=== PATIENT | female | born 1975 | race Caucasian/White ===

== ENCOUNTER 2024-05-19 22:18 | Emergency (ER) | payer OTHER ==
[~2024-05-19] VITALS: Ht 180.3 cm; Wt 90.0 kg
[~2024-05-19 22:18] MED LIST: IBUPROFEN800 MG PO; NORCO 5-325 TA1 EACH PO; PENICILLIN V P500 MG PO; PRENATAL-FOLIC1 EACH PO
[2024-05-19] MEDS ORDERED: MORPHINE SULFATE 4 MG/ML VIAL IV ONE (22:30)
[2024-05-19 22:36] LABS: HEMATOCRIT 26.2 % (35.0-50.0); HEMOGLOBIN 7.8 g/dL (12.0-18.0); MCH 17.9 (27-36); MCHC 29.7 g/dl (30-36); MCV 60.4 fl (81-99); PLATELET COUNT 302 K/uL (140-440); RBC 4.34 M/ul (4.3-5.7); RDW 22.3 (10.5-15.0)
[2024-05-19 22:50] LABS: ALBUMIN 3.7 g/dL (3.4-5.0); ANION GAP 11.8 (7-21); BILIRUBIN, TOTAL 0.2 mg/dL (0.2-1.0); BUN/CREATININE RATIO 13.95 (6.0-28.6); CALCIUM 8.8 mg/dL (8.5-10.1); CREATININE, SERUM 0.86 mg/dL (0.55-1.02); POTASSIUM 3.8 mmol/L (3.5-5.1); PROTEIN, TOTAL 7.4 g/dL (6.4-8.2)
[2024-05-19 23:38] LABS: LYMPHOCYTES, MANUAL DIFF 44; NEUTROPHILS, MANUAL DIFF 56
[2024-05-20 00:21] LABS: ABO A; ANTIBODY SCREEN NEGATIVE; RH POSITIVE
[2024-05-20 00:42] LABS: INFLUENZA B NAA NEGATIVE (NEGATIVE); RESPIRATORY SYNCYTIAL VIR NAA NEGATIVE (NEGATIVE)
[2024-05-20 01:19] LABS: IS CROSSMATCH COMPATIBLE
[2024-05-20 01:31] LABS: ABO A; RH POSITIVE
[2024-05-20] MEDS ORDERED: VITAMIN C500 M1 PO (01:31)
[2024-05-20] MEDS ORDERED: FERROUS SULFAT325 M2 PO (01:31)
[2024-05-20 04:35] VITALS: BP 133/76
--- NOTE | 2024-05-20 22:45 | EKG ---
[facility] [address] [place] [address] Signed Normal sinus rhythm Normal ECG No previous ECGs available Confirmed by Renetta Ordoñez MD () on 05/20/2024 10:45:37 PM Electronically Signed By: RENETTA ORDOÑEZ MD 05/20/24 2245 PATIENT NAME: LUDMILA LOVE Jeevan Electrocardiogram DATE OF : 77 PHYSICIAN: RENETTA ORDOÑEZ MD REPORT #: [id number] REPORT IS CONFIDENTIAL AND NOT TO BE RELEASED WITHOUT AUTHORIZATION
== END 2024-05-20 04:35 | disposition home or self-care (01) ==
LOC: ED 22:18
PROVIDERS: Family Medicine
DX: D50.9 Iron deficiency anemia, unspecified (principal); R07.89 Other chest pain; F17.200 Nicotine dependence, unspecified, uncomplicated; Z88.5 Allergy status to narcotic agent
CPT/HCPCS: 36415; 36430; 71045; 80053; 83735; 84484; 85025; 86850; 86900; 86901; 86922; 87502; 93005; 93010; 96374; 99285-25; J2270; P9016; U0002

== ENCOUNTER 2025-01-24 16:33 | Inpatient (IN) | payer OTHER ==
[~2025-01-24] VITALS: Ht 180.3 cm; Wt 95.0 kg
[2025-01-24] VITALS (9 sets, daily range): BP systolic 96–115; BP diastolic 57–61
--- OUTSIDE RECORDS SUMMARY | ~2025-01-24 | XMS | Continuity of Care Document ---
Demographics + + + | Address | [address] | | | [place] [address] | + + + | Preferred Language | Unknown | + + + | Marital Status | Unknown | + + + | Amish Affiliation | Unknown | + + + | Race | White | + + + | Ethnic Group | Not or | + + + Author + + + | Author | [facility] | + + + | Organization | [facility] | + + + | Address | [address] | | | [place] [address] | + + + | Phone | | + + + Care Team Providers + + + + | Care Training Generalist Name | Role | Phone | + + + + Unavailable | Unavailable | + + + + Allergies No information. Encounters No information. Functional Status No information. Immunizations No information. Medications No information. Problems + + + + | date | description | facility | + + + + | 2024-12-31 12:06:48 | Alcohol use, unspecified | [facility] | | | with withdrawal, | | | | uncomplicated (CMS/HCC V24, | | | | CMS/HCC V28) | | + + + + | 2024-12-31 12:06:48 | Acute frontal sinusitis, | [facility] | | | unspecified | | + + + + Procedures No information. Results/Labs No information. Social History +--------+ + + | date | description | facility | +--------+ + + Vital Signs No information."
--- OUTSIDE RECORDS SUMMARY | ~2025-01-24 | XMS | Continuity of Care Document ---
Demographics + + + | Address | [address] | | | [place] [address] | + + + | Preferred Language | Unknown | + + + | Marital Status | Unknown | + + + | Worship Affiliation | Unknown | + + + | Race | White | + + + | Ethnic Group | Not or | + + + Author + + + | Author | [facility] | + + + | Organization | [facility] | + + + | Address | [address] | | | [place] [address] | + + + | Phone | | + + + Care Team Providers + + + + | Care Clerical Car Checker Name | Role | Phone | + [...]
[~2025-01-24 16:33] MED LIST changes: +FERROUS SULFAT325 M2 PO; +VITAMIN C500 M1 PO
--- OUTSIDE RECORDS SUMMARY | 2025-01-24 16:34 | XMS ---
PreManage Notification: [facility] LOVE Security Stitcher Hand Events No recent Security Events currently on file CRITERIA MET - [facility] - 2 Visits in 30 Days CARE PROVIDERS -, [facility] Dentist: Circus Supervisor Current [place] PHONE: [phone] -[place]- Dentist: Circus Supervisor Current [facility] PHONE: [phone] [facility]: [facility] FAMILY PHONE: [phone] ADÁN MACK Physician Networking Administrator Current PHONE: [phone] Georgie has no Care Guidelines for this patient. Melonie VISIT COUNT (12 MO.) 2 [facility] [address] [facility] TOTAL 5 NOTE: Visits indicate total known visits. ED/UCC VISIT TRACKING (12 MO.) 01/24/2025 16:33 [facility] [place] TYPE: Emergency COMPLAINT: - BODY ACHES [facility]24 11[facility]: Emergency COMPLAINT: - Left shoulder pain (past 3 months) DIAGNOSES: - Acute frontal sinusitis, unspecified - Alcohol use, unspecified with withdrawal, uncomplicated - Left shoulder pain (past 3 months) - pain all over body 07/02/2024 10:09 [facility] ([facility]) TYPE: Emergency DIAGNOSES: - Chest pain, unspecified - Chest Pain - CP 06/26/2024 13:09 [facility] (Lynette Ojeda) TYPE: Emergency DIAGNOSES: - Chest pain, unspecified - Iron deficiency anemia, unspecified - Chest Pain - CP 05/19/2024 22:[address] [facility] [place] TYPE: Emergency COMPLAINT: - CHEST PAIN DIAGNOSES: - Allergy status to narcotic agent - Chest pain, unspecified - Iron deficiency anemia, unspecified - Nicotine dependence, unspecified, uncomplicated - Other chest pain INPATIENT VISIT TRACKING (12 MO.) No inpatient visits to display in this time frame [email or web address]
[2025-01-24 17:02] LABS: CORONAVIRUS COVID-19 AG NEGATIVE (NEGATIVE)
[2025-01-24] MEDS ORDERED: KETOROLAC TROMETHAMINE 15 MG/ML VIAL IV ONE (18:30)
[2025-01-24] MEDS ORDERED: ACETAMINOPHEN 500 MG TAB PO ONE (18:30)
[2025-01-24] MEDS ORDERED: SODIUM CHLORIDE 0.9% 1,000 ML IV ONE (18:30)
[2025-01-24 18:50] LABS: BASOPHILS 0.2 % (0.1-1.2); EOSINOPHILS 0 % (0.7-5.8); LYMPHOCYTES 10.1 % (19.3-51.7); MCH 17.8 PG (25.6-32.2); MCHC 28.0 g/dL (32.2-35.5); MCV 63.7 fL (79.4-94.8); MONOCYTES 6.1 % (4.7-12.5); NEUTROPHILS 82.6 % (34.0-71.1); RBC 4.43 M/uL (3.93-5.22)
[2025-01-24 19:18] LABS: ALT (SGPT) 12.0 U/L (14-59); AST (SGOT) 16.0 U/L (15-37); GLOMERULAR FILTRATION RATE,EST 52.0 mL/min (>60); PROTEIN, TOTAL 6.8 g/dL (6.4-8.2); UREA NITROGEN 12.0 mg/dL (7-18)
[2025-01-24] MEDS ORDERED: SODIUM CHLORIDE 0.9% 1,000 ML IV PRN (19:45)
[2025-01-24] MEDS ORDERED: NALOXONE HCL 0.4 MG SYR IV ONE (19:45)
[2025-01-24] MEDS ORDERED: AZITHROMYCIN 500 MG in DEXTROSE 5% 250 ML IV ONE (19:45)
[2025-01-24 20:03] LABS: LACTIC ACID, BLOOD 1.9 mmol/L (0.4-2.0)
[2025-01-24 20:04] LABS: BLOOD/HGB, URINE NEGATIVE (Negative); KETONE, URINE TRACE (Negative); LEUK ESTERASE, URINE NEGATIVE (negative); NITRITE, URINE NEGATIVE (negative)
[2025-01-24 20:13] LABS: EPITHELIAL CELLS, URINE SQUAMOUS 1+ /lpf (0-1+)
[2025-01-24 20:14] LABS: BACTERIA, URINE 1+ /hpf (negative); CASTS, URINE NONE SEEN \\lpf; CRYSTALS, URINE NONE SEEN (0-1+); REFLEX CULTURE, URINE No (No)
[2025-01-24 20:24] LABS: AMPHETAMINES, URINE POSITIVE (NEGATIVE); BARBITURATES, URINE NEGATIVE (NEGATIVE); BENZODIAZEPINE, URINE NEGATIVE (NEGATIVE); CANNABINOID, URINE POSITIVE (NEGATIVE); COCAINE, URINE NEGATIVE (NEGATIVE); ECSTASY, URINE POSITIVE (NEGATIVE); FENTANYL, URINE NEGATIVE (NEGATIVE); METHADONE, URINE NEGATIVE (NEGATIVE); OPIATES, URINE NEGATIVE (NEGATIVE); OXYCODONE, URINE NEGATIVE (NEGATIVE); PHENCYCLIDINE, URINE NEGATIVE (NEGATIVE)
[2025-01-24] MEDS ORDERED: NOREPINEPHRINE BITARTRATE 250 ML IV SCH (21:15)
[2025-01-24] MEDS ORDERED: PIPERACILLIN/TAZOBACTAM 4.5 GM in SODIUM CHLORIDE 0.9% 100 ML IV ONE (22:00)
[2025-01-24] MEDS ORDERED: LACTATED RINGER'S 1,000 ML IV SCH (22:00)
[2025-01-24] MEDS ORDERED: LIDOCAINE 2% VISCOUS 6 ML SYR TOP ONE (22:00)
--- NOTE | 2025-01-24 22:26 | NUR ---
RECEIVED REPORT FROM ASH ROSAS RN. ON PHONE AND ER NURSE GAVE UPDATE AND RECEIVED VERBAL ORDERS. ORDERS VERIFIED USING REPEATBACK METHOD. THIS RN PLACE DIAMOND TEMP PER ORDER. INTRA ABD PRESSURE COMPLETED AND NOTED TO BE 13. IV ABX INFUSING PER ORDER. IV FLUIDS INFUSING PER ORDER. PATIENT AWAKENS TO PAINFUL STIMULI. PATIENT IS ON 3L VIA OXYMASK. PATIENT TITRATED TO 2L VIA NC. PATIENTS ADMISSION COMPLETED. ASSESMENT COMPLETED.
--- NOTE | 2025-01-24 22:54 | NUR ---
PATIENTS AT BEDSIDE AND UPDATED AND PLAN OF CARE FOR PATIENT AND ALL QUESTIONS ANSWERED. PATIENTS DIAMOND EMPTIED AND RECORDED. PATIENT CONTINUES TO BE DROWSY BUT AROUSBALE. NO NEEDS NOTED. CALL LIGHT IN REACH.
[2025-01-25] VITALS (35 sets, daily range): BP systolic 98–132; BP diastolic 44–73
--- NOTE | 2025-01-25 00:04 | NUR ---
PATIENTS NOREPI TITRATED PER PROTOCOL-SEE FLOWSHEET. PATEINT TITRATED TO 3L NC. PATIENT AWAKENS BRIEFLY AND TALKS ON PHONE. PATIENT IS [id number]. PATIENT DENIES ANY PAIN OR SOB. PATIENT DENIES ANY NEEDS. CALL LIGHT IN REACH. IV INFUSING PER ORDER.
--- NOTE | 2025-01-25 00:23 | NUR ---
PATIENTS NOREPI TITRATED PER PROTOCOL-SEE FLOWSHEET. FOLET EMPTIED AND RECORDED. PATIENT IS RESTING IN BED WITH EYES CLOSED RR 24, NAD NOTED. CALL LIGHT IN REACH. IV INFUSING PER ORDER.
--- NOTE | 2025-01-25 01:12 | NUR ---
PATIENTS DIAMOND EMPTIED AND RECORDED. PATIENTS NOREPI DRIP-TITRATED PER PROTOCOL SEE FLOWSHEET. PATIENT IS RESTING IN BED WITH EYES CLOSED, RR 17. NAD NOTED. CALL LIGHT IN REACH.
--- NOTE | 2025-01-25 02:30 | NUR ---
PATIENT LEVOPHED GTT TURNED OFF PER MEDICATION FLOWSHEET. PATIENT RESTING IN BED WITH EYES CLOSED, RR 19. IVF INFUSING PER EMAR, SITE WNL. PATIENT DIAMOND CATHETER INTACT AND DRAINING YELLOW COLORED URINE. PATIENT HAS NO NEEDS AT THIS TIME. CALL LIGHT IN REACH.
[2025-01-25] MEDS ORDERED: ALBUTEROL SULFATE 0.083% 3 ML VIAL INH PRN (02:45)
[2025-01-25] MEDS ORDERED: ACETAMINOPHEN 500 MG TAB PO PRN ×2 (02:45→07:15)
--- NOTE | 2025-01-25 04:39 | NUR ---
PATIENT RESTING IN BED WITH EYES CLOSED. PATIENT BOYFRIEND AT BEDSIDE. PATIENT LUNG SOUNDS COARSE THROUGHOUT, CONTINUES TO HAVE OCCASIONAL COUGH. DIAMOND CATHETER EMPTIED AND DOCUMENTED. PATIENT IVF INFUSING PER EMAR, SITE WNL. PATIENT BLOOD PRESSURE REMAINS STABLE. PATIENT HAS CALL LIGHT IN REACH.
[2025-01-25] MEDS ORDERED: PIPERACILLIN/TAZOBACTAM 4.5 GM in DEXTROSE 5% 100 ML IV SCH (06:00)
[2025-01-25 06:03] LABS: BASOPHILS 0.2 % (0.1-1.2); EOSINOPHILS 0.1 % (0.7-5.8); LYMPHOCYTES 10.1 % (19.3-51.7); MCH 18.1 PG (25.6-32.2); MCHC 28.2 g/dL (32.2-35.5); MCV 64.3 fL (79.4-94.8); MONOCYTES 4.5 % (4.7-12.5); NEUTROPHILS 82.9 % (34.0-71.1); RBC 4.03 M/uL (3.93-5.22)
[2025-01-25 06:19] LABS: RETIC, PERCENT 1.06 % (0.5-1.7)
[2025-01-25 06:24] LABS: SMEAR REVIEW BLOOD SEE COMMENTS
[2025-01-25 06:27] LABS: ALT (SGPT) 13.0 U/L (14-59); AST (SGOT) 16.0 U/L (15-37); GLOMERULAR FILTRATION RATE,EST 56.0 mL/min (>60); PROTEIN, TOTAL 6.0 g/dL (6.4-8.2); UREA NITROGEN 11.0 mg/dL (7-18)
--- NOTE | 2025-01-25 07:05 | NUR ---
PLACED CALL TO MD TO UPDATE ON LABS AND REQUEST PAIN MEDICATION. RECEIVED NEW VERBAL ORDERS AND VERIFIED ORDERS USING REPEAT BACK METHOD.
[2025-01-25] MEDS ORDERED: NICOTINE POLACRILEX 4 MG LOZENGE BUCCAL PRN (07:15)
[2025-01-25] MEDS ORDERED: PROCHLORPERAZINE EDISYLATE 10 MG/2 ML VIAL IV PRN (07:15)
[2025-01-25] MEDS ORDERED: NICOTINE POLACRILEX 2 MG GUM MM PRN (07:15)
[2025-01-25] MEDS ORDERED: POTASSIUM CHLORIDE 10 MEQ TABCR PO ONE (07:15)
[2025-01-25] MEDS ORDERED: KETOROLAC TROMETHAMINE 30 MG/ML VIAL IV PRN (07:15)
[2025-01-25] MEDS ORDERED: BENZONATATE 100 MG CAP PO PRN (07:15)
[2025-01-25] MEDS ORDERED: MAGNESIUM HYDROXIDE/AL HYDROX 30 ML CUP PO PRN (07:15)
--- NOTE | 2025-01-25 07:30 | NUR ---
HANDOFF REPORT RECEIVED FROM SPECIAL AGENT [employer] RN. ALL QUESTIONS ANSWERED. NO EVIDENCE OF ACUTE DISTRESS NOTED. PATIENT RESTING IN BED. CALL LIGHT IN REACH
--- NOTE | 2025-01-25 08:39 | NUR ---
PATIENT ASSESSMENT COMPLETE. PATIENT ALERT AND ORIENTED. RR 22. SPO2 96% ON RA. ORAL TEMP 99.2. PATIENT STATES PAIN IS "BETTER" SINCE TORADOL ADMINISTRATION. PATIENT RATES PAIN 8/10 ON THE R. SIDE OF CHEST. PATIENT DENIES NAUSEA. PATIENT C/O SOB. RR EVEN AND UNLABORED. PATIENT REPORTS FEELING HOT. COOLING MEASURES APPLIED. DIAMOND INTACT AND WNL. PATIENT DENIES BATHROOM NEEDS. PATIENT SAT UP IN BED FOR BREAKFAST. IV SITES INTACT AND WNL. NO EVIDENCE OF ACUTE DISTRESS NOTED. PATIENT DENIES FURTHER NEEDS AT THIS TIME. CALL LIGHT IN REACH. S/O AT BEDSIDE
[2025-01-25] MEDS ORDERED: PANTOPRAZOLE SODIUM 40 MG TABEC PO SCH (09:00)
--- NOTE | 2025-01-25 09:14 | NUR ---
PRN TYELNOL ADMINISTERED FOR DIAMOND TEMP OF 101.2 AND PAIN 8/10 ON THE RIGHT SIDE OF CHEST. PATIENT TOLERATED WELL. IVF INFUSING PER EMAR. PATIENT DENIES NEEDS. CALL LIGHT IN REACH
--- NOTE | 2025-01-25 10:05 | NUR ---
PATIENT FINISHES WORKING WITH PT. PATIENT BACK TO BED. IVF INFUSING PER EMAR. PATIENT DENIES NEEDS. CALL LIGHT IN REACH.
--- NOTE | 2025-01-25 10:49 | NUR ---
PHONE CALL PLACED TO . NOTIFIED OF MAGNESIUM LEVEL OF 1.3. NEW ORDER RECEIVED FOR 2 GM OF MAG SULFATE Q4 HOUR FOR A TOTAL OF 4 GM (2 DOSES TOTAL). ORDER VERIFIED VIA REPEAT BACK METHOD.
[2025-01-25] MEDS ORDERED: MAGNESIUM SULFATE 2 GM/50 ML BAG IV SCH (11:00)
--- NOTE | 2025-01-25 11:21 | NUR ---
IV MAG INFUSING PER EMAR. PATIENT ASSESSMENT COMPLETE. PATIENT C/O SOB. RT NOTIFIED OF PATIENT NEEDING PRN NEB. VITAL SIGNS STABLE. PATIENT AFEBRILE AT THIS TIME. PAIN 7/10 ON R.SIDE. PATIENT REPOSITIONS SELF IN BED. NO FURTHER NEEDS IDENTIFIED. CALL LIGHT IN REACH.
--- NOTE | 2025-01-25 11:39 | NUR ---
MED REC COMPLETE
--- NOTE | 2025-01-25 11:48 | NUR ---
UR CLINICAL REVIEW: MCG-PER MCG REVIEW MEETS INPT FOR PNEUMONIA WITH NEED FOR IV ABX, IV HYDRATION, MED MANAGEMENT AND MONITORING EOCCO INPT 01/25/25 @ 0714 ORDER MATCHES REG CLINICAL FAXED TO [facility] FOR AUTH REVIEW DISCHARGE TO HOME WHEN STABLE 01/26/25 DC REVIEW
[2025-01-25] MEDS ORDERED: PHARMACY RENAL DOSE ADJUSTMENT 1 DOSE MISC PO SCH (12:00)
--- NOTE | 2025-01-25 12:25 | NUR ---
PATIENT SAT UP IN BED. PATIENT REFUSES TO GET UP TO CHAIR FOR MEAL. PATIENT SAT UP IN HIGH FOWLERS FOR MEAL. PO FLUIDS PROVIDED. PATIENT DENIES NEEDS AT THIS TIME. IVF INFUSING PER EMAR. NO EVIDENCE OF ACUTE DISTRESS NOTED. CALL LIGHT IN REACH.
--- NOTE | 2025-01-25 13:50 | NUR ---
Spoke with Shante and her SO. They currently live in an RV on [address] Her mailing address is [employer]. Pt states she is able to get in and out of the RV without any issue. She is active. She drives. She is not currently working. She does not use and DME. 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 She is not interested in speaking with anyone about her drug. Pt denies financial or safety concerns. She plans on dc to the RV with her SO. He also states she will assist pt as needed and can shop, cook, and clean if needed.
--- NOTE | 2025-01-25 13:55 | NUR ---
IVF INFUSING PER EMAR. IV ABX AND IV MAG INFUSING PER EMAR. PRN TORADOL ADMINISTERED PER EMAR FOR PAIN OF 09/02. PATIENT RESTING IN BED. DENIES NEEDS AT THIS TIME. VITAL SIGNS STABLE. CALL LIGHT IN REACH. ACAPELLA AT BEDSIDE
--- NOTE | 2025-01-25 15:05 | NUR ---
PATIENT RESTING IN BED. RR EVEN AND UNLABORED. PATIENT STATES PAIN IS NOW 4/10 FROM A 7/10. PATIENT DROWSY BUT EASILY AROUSABLE. NO FURTHER NEEDS IDENTIFIED. CALL LIGHT IN REACH
--- NOTE | 2025-01-25 15:30 | NUR ---
PATIENT ASSESSMENT COMPLETE. PATIENT ON RA. TOLERATING WELL. PATIENT SAT UP IN BED. PATIENT UTILIZES ACAPELLA. IVF INFUSING PER EMAR. DIAMOND INTACT. PATIENT DENIES NAUSEA AND STATES PAIN IS AT A TOLERABLE LEVEL OF 4/10. PATIENT DENIES INCREASED SOB. PATIENT UPDATED ON POC. CALL LIGHT IN REACH
--- NOTE | 2025-01-25 16:37 | NUR ---
PHONE CALL PLACED TO MD. MD MADE AWARE OF MOST RECENT VITAL SIGNS, AND AM LACTIC OF 3.6. MD NOTIFIED THAT PATIENT HAS BEEN OFF LEVOPHED GTT SINCE 0200. MD ORDER RECEIEVED TO NOT PLACE PATIENT BACK ON LEVOPHED AT THIS TIME AND STATES "LEVOPHED WILL KILL HER. IF HER KIDNEYS ARE PRODUCING URINE SHE WILL BE FINE". MD STATES "JUST LET HER EAT, DRINK, AND REST". MD ORDER RECEIEVED TO RECHECK LACTIC AT 0600 ON 01/26/25. NO FURTHER ORDERS RECEIEVED AT THIS TIME. ORTHOSTATIC VITALS COMPLETED D/T PATIENT C/O DIZZINESS W/ STANDING AND AMBULATION. SEE VITAL SIGNS DOCUMENTATION. PATIENT ON MONITOR FOR CLOSE OBSERVATION.
--- NOTE | 2025-01-25 16:48 | NUR ---
Called [facility] and scheduled Shalisa with Milton STODDARD 03/02/24 at 1 pm.
--- NOTE | 2025-01-25 17:21 | NUR ---
PATIENT SITTING UP IN CHAIR EATING MEAL. VITAL SIGNS STABLE. SPO2 100% ON RA. NO EVIDENCE OF ACUTE DISTRESS NOTED. CALL LIGHT IN REACH
--- NOTE | 2025-01-25 18:08 | NUR ---
PATIENT SITTING UP IN CHAIR. VITAL SIGNS STABLE. PATIENT DENIES NEEDS AT THIS TIME. CALL LIGHT IN REACH
--- NOTE | 2025-01-25 18:30 | NUR ---
PATIENT ASSISTED UP TO BR, SBA. PATIENT BACK TO BED. IVF INFUSING PER EMAR. PATIENT PROVIDED NEW HÉCTOR PAD. PATIENT PROVIDED SODA AND WARM BLANKET. PATIENT RATES PAIN 5/10 AND STATES "IT HAS GOTTEN MUCH BETTER". PATIENT STATES PAIN IS TOLERABLE AND DENIES NEED FOR PAIN MEDICATION. VITAL SIGNS STABLE, CALL LIGHT IN REACH
[2025-01-25] MEDS ORDERED: AZITHROMYCIN 500 MG in DEXTROSE 5% 250 ML IV SCH (21:00)
[2025-01-25] MEDS ORDERED: MELATONIN 3 MG TAB PO PRN (21:00)
[2025-01-25] MEDS ORDERED: MAGNESIUM OXIDE 400 MG TABLET PO SCH (21:00)
[2025-01-26] VITALS (12 sets, daily range): BP systolic 103–145; BP diastolic 43–88
[2025-01-26 05:22] LABS: BASOPHILS 0.5 % (0.1-1.2); EOSINOPHILS 1.8 % (0.7-5.8); LYMPHOCYTES 13.2 % (19.3-51.7); MCH 18.1 PG (25.6-32.2); MCHC 28.1 g/dL (32.2-35.5); MCV 64.4 fL (79.4-94.8); MONOCYTES 4.2 % (4.7-12.5); NEUTROPHILS 79.1 % (34.0-71.1); RBC 3.93 M/uL (3.93-5.22)
[2025-01-26 05:35] LABS: SMEAR REVIEW BLOOD SEE COMMENTS
[2025-01-26 05:42] LABS: AST (SGOT) 15.0 U/L (15-37); GLOMERULAR FILTRATION RATE,EST 79.0 mL/min (>60); PHOSPHORUS, INORGANIC 2.4 mg/dL (2.5-4.9); PROTEIN, TOTAL 5.2 g/dL (6.4-8.2); UREA NITROGEN 13.0 mg/dL (7-18)
[2025-01-26 05:53] LABS: ALT (SGPT) 8.0 U/L (14-59)
--- NOTE | 2025-01-26 07:25 | NUR ---
HANDOFF REPORT RECEIEVED FROM FIORELLA BENITEZ. ALL QUESTIONS ANSWERED.
--- NOTE | 2025-01-26 07:44 | NUR ---
PATIENT SITTING UP IN CHAIR. PATIENT UPDATED ON POC. VITAL SIGNS STABLE. NO EVIDENCE OF ACUTE DISTRESS NOTED. CALL LIGHT IN REACH
[2025-01-26] MEDS ORDERED: SOD PHOS MONO/SOD PHOS DIBAS 250 MG TAB PO SCH (08:00)
--- NOTE | 2025-01-26 08:45 | NUR ---
PATIENT ASSESSMENT COMPLETE. PATIENT ALERT AND ORIENTED. HR 90'S, NSR. RR EVEN AND UNLABORED. SPO2 99% ON RA. HACKING PRODUCTIVE COUGH NOTED. BOWEL TONES ACTIVE, PATIENT DENIES NAUSEA. PAIN 7/10 ON THE R. CHEST, PRN TORADOL ADMINISTERED PER EMAR. MEDICATIONS ADMINISTERED PER EMAR. PATIENT UPDATED ON POC. IVF INFUSING PER EMAR. IV ABX INFUSING PER EMAR. DIAMOND CATH INTACT AND DIAMOND CARE COMPLETE. NO EVIDENCE OF ACUTE DISTRESS NOTED. CALL LIGHT IN REACH.
--- NOTE | 2025-01-26 09:00 | NUR ---
PATIENT DIAMOND DC'D PER MD ORDER. 10CC OF SALINE REMOVED FROM DIAMOND BALLOON. PATIENT TOLERATED WELL. PATIENT EDUCATION COMPLETE. VITAL SIGNS STABLE
--- NOTE | 2025-01-26 10:00 | NUR ---
L. FA IV INFILTARTED. IV SITE DC'D. PRESSURE DRESSING APPLIED. PATIENT EDUCATION COMPLETE. NEW IV SITE IN L. HAND STARTED BY THIS RN. PATIENT TOLERATED WELL. IVF INFUSING PER EMAR. NO FURTHER NEEDS IDENTIFIED.
--- NOTE | 2025-01-26 11:28 | NUR ---
DC REVIEW: NO BARRIERS TO DC NOTED. PT HAS HX OF ACTIVE IVDA, DECLINES COUNSELING DISCHARGE TO HOME WITH SO WHEN STABLE ADD:1-2 DAYS NO ACTIONS REQUIRED
--- NOTE | 2025-01-26 11:49 | NUR ---
patient c/o 09/02 r. chest pain and madera. prn tylenol administered per emar. ivf infusing per emar. iv sites patent. patient offered nicotine replacement and patient declines and states she is not a current smoker. patient denies ETOH use. patient states ETOH use is occassional. no further needs identified. patient updated on POC. call light in reach
--- NOTE | 2025-01-26 11:53 | NUR ---
REPORT RECEIVED FROM RN'S LUIS A. PATIENT BROUGHT OVER TO MED SURG AT THIS TIME. PATIENT VOIDED 200 ML YELLOW URINE. PATIENT VITAL SIGNS TAKEN AND DOCUMENTED IN THE CHART. PATIENT WALKIED OVER TO HER NEW ROOM. PATIENT EXPRESSED WANTING TO GO HOME AT THIS TIME. PATIENT LUNCH TRAY SET UP IN FRONT OF THE PATIENT. PATIENT STATED NO FURTHER NEEDS AT THIS TIME. CALL LIGHT AND PERSONAL BELONGINGS ARE WITHIN REACH.
--- NOTE | 2025-01-26 12:10 | NUR ---
PATIENT TRANSFERRED TO MS RM 114. HANDOFF REPORT GIVEN TO FIORELLA JOSEPH. ALL QUESTIONS ANSWERED. PATIENT AMBULATES TO MS RM 114. GAIT STEADY. ALL PATIENT BELONGINGS TRANSFERRED WITH PATIENT. IV SITES INTACT AND WNL. PATIENT UPDATED ON POC. PATIENT DENIES ANY QUESTIONS OR CONCERNS. VITAL SIGNS STABLE. NO EVIDENCE OF ACUTE DISTRESS NOTED.
--- NOTE | 2025-01-26 12:29 | NUR ---
PATIENT TRANSFERRED TO MS RM 114. HANDOFF REPORT GIVEN TO FIORELLA BAIRD. ALL QUESTIONS ANSWERED. PATIENT AMBULATES TO MS 114, GAIT STEADY. PATIENT UPDATED ON POC. PATIENT DENIES QUESTIONS OR CONCERNS AT THIS TIME. IV SITES INTACT AND WNL. PATIENT BELONGINGS TRANSFERED WITH PATIENT. NO EVIDENCE OF ACUTE DISTRESS NOTED. VITAL SIGNS STABLE.
--- NOTE | 2025-01-26 12:29 | NUR ---
NOTIFIED OF PATIENT WANTING TO GO HOME. MD STATED STATED "I HIGHLY ADVISED HER TO NOT GO HOME AND STAY AT LEAST ANOTHER DAY". MD STATED "WE CANNOT HOLD HER AGAINST HER WILL". PATIENT NOTIFIED RN THAT HE WILL NO DISCHARGE HER BUT STATED AMA WOULD BE HER OPTION. NO FURTHER ORDERS AT THIS TIME. CALL LIGHT AND PERSONAL BELONGINGS ARE WITHIN REACH.
--- NOTE | 2025-01-26 12:55 | NUR ---
IN ROOM WITH FIORELLA BAIRD SHE EXPLAINS THAT DR WILL NOT DISCHARGE HER ATT. PT BRIE EXPLAINED RISKS AND BENEFITS OF LEAVING AMA. PT CHOSE TO LEAVE AMA. BOTH IV'S REMOVED WNL. PT'S FRIEND IN ROOM TO TAKE HER HOME. PT'S FRIEND APOLOGIZED FOR HER BEHAVIOR.
[2025-01-26] MEDS ORDERED: AZITHROMYCIN250 MG PO (13:06)
[2025-01-26] MEDS ORDERED: AMOX TR-K CLV1 EACH PO (13:07)
[2025-01-26 13:51] LABS: IRON BINDING CAPACITY TOTAL 299 ug/dL (240-450); IRON,SERUM OR PLASMA 7 ug/dL (28-170); TRANSFERRIN SATURATION 2 %sat (20-50)
[2025-01-27 09:21] LABS: SMEAR REVIEW BLOOD SEE COMMENTS
--- NOTE | 2025-01-27 17:13 | NUR ---
PTS FRIEND CALLED ASKING FOR MEDICAL ADVICE. CALL WAS DROPPED PRIOR TO BEING ABLE TO ANSWER QUESTIONS. ATTEMPTED TO CALL BACK AND PHONE WAS DISCONNECTED.
== END 2025-01-26 13:05 | disposition home or self-care (01) | DRG 871 ==
LOC: ED 16:33 → CCU 20:56 → MS 01-26 12:10
PROVIDERS: Emergency Medicine; Internal Medicine; ADMIT Internal Medicine; ATTEND Internal Medicine
DX: A41.9 Sepsis, unspecified organism (principal); J18.9 Pneumonia, unspecified organism; J69.0 Pneumonitis due to inhalation of food and vomit; D50.9 Iron deficiency anemia, unspecified; Z53.29 Procedure and treatment not carried out because of patient's decision for other reasons; Z88.2 Allergy status to sulfonamides; Z88.8 Allergy status to other drugs, medicaments and biological substances
CPT/HCPCS: 36415; 51702; 71045; 71260; 80053; 80307; 81001; 82550; 82728; 82803; 83550; 83605; 83735; 83921; 84100; 85025; 85045; 85060; 86140; 92523; 94640; 94668; 97162; 97165; A9270; J0456; J0696; J1885; J2312; J2543; J3475; J7030; J7060; J7121; Q9967